=== PATIENT | female | born 1995 | race Caucasian/White ===

== ENCOUNTER 2017-03-02 19:15 | Emergency (ER) | payer OTHER ==
[~2017-03-02] VITALS: Ht 165.1 cm; Wt 93.8 kg
[2017-03-02 19:18] VITALS: TEMP 37; Ht 165.1 cm; Wt 93.8 kg
--- NOTE | 2017-03-02 19:48 | EMERGENCY ROOM VISIT NOTE ---
History Report prepared by Everardo: Augustus Gutierrez Under the Supervision of: Shira FungO. First contact with patient: 19:22 Chief Complaint: VAGINAL DISCHARGE Stated Complaint: 8-9WKS PREG,DISCHARGE History of Present Illness The patient is a 21 year old female who is 8 to 9 weeks who presents to the Emergency Room with complaints of persistent dark brown vaginal discharge that started 3 days ago. She says that she had an internal pelvic 2 days ago, and was told that there may be some discharge afterward, but the discharge did not stop. She notes that she has not noticed clots however. She says that her discharge is similar to the end of her periods, but a bit more heavy. The patient states that this will be her first . She adds that she has been having some intermittent abdominal and pelvic cramping pain. The patient states that her last intercourse was 2 days ago. She denies any back pain or urinary symptoms. She adds that she has vomited a couple times. Pt states she was seen at [facility] earlier today and had labs and US performed. No recent trauma, no heavy lifting. Source of History: patient Onset: 3 days ago Position: other (vaginal) Quality: other (dark brown discharge) Timing: other (persistent) Associated Symptoms: + vomiting, + abdominal pain, No back pain, No urinary symptoms Note: Associated symptoms: Intermittent pelvic cramping pain. Review of Systems See HPI for pertinent positives & negatives. A total of 10 systems reviewed and were otherwise negative. Past Medical & Surgical Medical Problems: (1) No chronic diseases present Family History No pertinent family history Social History Smoking Status: Never Smoker Drug Use: none Marital Status: in relationship Housing Status: lives with family Occupation Status: unemployed Current/Historical Medications Scheduled Docusate Sodium (Colace), 1-3 CAP PO PRN UD Lacosamide (Vimpat), 200 MG PO BID Lamotrigine (Lamictal), 250 MG PO BID Levetiracetam (Keppra), 1,750 MG PO BID Multivit/Min/Iron/Fol Ac/Pren ( Vitamin), 1 TAB PO DAILY Allergies Coded Allergies: No Known Allergies (Unverified , 03/02/17) Physical Exam Vital Signs Date Time Temp Pulse Resp B/P (MAP) Pulse Ox O2 Delivery O2 Flow Rate FiO2 03/02/17 20:40 99 16 121/78 97 03/02/17 19:18 37.0 105 18 117/73 98 Room Air Physical Exam GENERAL: alert, well appearing, well nourished, no distress, non-toxic EYE EXAM: normal conjunctiva, PERRL and EOM's grossly intact OROPHARYNX: no exudate, no erythema, lips, buccal mucosa, and tongue normal and mucous membranes are moist NECK: supple, no nuchal rigidity, no adenopathy, non-tender LUNGS: Clear to auscultation. Normal chest wall mechanics HEART: no murmurs, S1 normal and S2 normal ABDOMEN: abdomen soft, non-tender, normo-active bowel sounds, no masses, no rebound or guarding. BACK: Back is symmetrical on inspection and there is no deformity, no midline tenderness, no CVA tenderness. SKIN: no rashes and no bruising UPPER EXTREMITIES: upper extremities are grossly normal. LOWER EXTREMITIES: No pitting edema. NEURO EXAM: Normal sensorium, cranial nerves II-XII grossly intact, normal speech, no gross weakness of arms, no gross weakness of legs. Medical Decision & Procedures ED Course 1937: The patient was evaluated in room A4B. A complete history and physical exam was performed. 2013: Review of records from [facility] - her beta HCG on February 23 was 1477, her beta HCG on March 02 (i.e. earlier today) was 1234 - did receive dose of Rhogam in [facility] ED, the US done there says there is an intrauterine gestational sac, no pull or yolk sac is seen, there is a complex corpus luteum cyst within right ovary which measures approximately 2.4 cm, no free fluid in pelvis, impression suggests gestational age of less than 5 weeks. 2032: Upon reevaluation, the patient is feeling better. I did a cervix exam, which revealed no CMT tenderness, cervix closed, no blood in vaginal vault. I discussed the findings from [facility] and the treatment plan with the patient. I do not feel she needs repeat blood work or ultrasound imaging at this time given that this was all performed 4-6 hours ago. She verbalizes agreement and understanding. She was discharged home. Medical Decision Differential diagnosis includes etiologies such as ectopic , dysfunction uterine bleeding, bleeding dyscrasia, trauma, infection, as well as others were entertained. Patient presented here following evaluation a [facility] where she had labs and ultrasound imaging performed. Patient with an early and abnormal bleeding. Concern for possible threatened . Patient seemed to not understand imaging and was unhappy with her care [facility]. Following records being obtained from her valuation [facility], I carefully went over these at bedside including her labs as well as her ultrasound and explained the need for close follow-up, and the possible causes of her symptoms. Patient with no current abdominal pain, no vomiting, no fevers, no active bleeding noted on my exam. This is the patient's first . I advised limiting activity, pelvic rest, no strenuous activity. Patient has a follow-up appointment scheduled for Sunday with her BUSINESS SUPPORT COORDINATOR. I discussion will need a repeat hCG level and repeat ultrasound to better confirm if the is viable or if this is a miscarriage. Patient verbalized understanding all this, was agreeable with plan, and seemed happy at time of discharge following a better understanding of her prior evaluation. Medication Reconcilliation Current Medication List: was personally reviewed by me Blood Pressure Screening Patient's blood pressure: Normal blood pressure Impression Primary Impression: Additional Impression: Threatened miscarriage Scribe Attestation The scribe's documentation has been prepared under my direction and personally reviewed by me in its entirety. I confirm that the note above accurately reflects all work, treatment, procedures, and medical decision making performed by me. Departure Information Dispostion Home / Self-Care Patient Instructions My [facility] Additional Instructions Please keep your appointment on Sunday with the BUSINESS SUPPORT COORDINATOR. Please continue to monitor symptoms for any changes. If you develop any worsening bleeding, worsening pain, develop fevers, dizziness, other vaginal discharge, or you have any other new concerns, please return to the emergency room. Problem Qualifiers Primary Impression: Weeks of gestation: less than 8 weeks Qualified Codes: Z3A.01 - Less than 8 weeks gestation of
[2017-03-02] MEDS ORDERED: LAMO100T16 PO (20:27)
[2017-03-02] MEDS ORDERED: KPP/1000 PO (20:27)
[2017-03-02] MEDS ORDERED: LACO200T PO (20:27)
[2017-03-02] MEDS ORDERED: PRENTAB26 PO (20:27)
[2017-03-02] MEDS ORDERED: DOCU-94 PO (20:27)
[2017-03-02 20:40] VITALS: BP 121/78; PULSE 99; O2SAT 97
== END 2017-03-02 20:40 | disposition home or self-care (01) ==
LOC: C.EDB 19:17 → C.EDA 20:40
DX: O20.0 Threatened abortion (principal); Z3A.09 9 weeks gestation of pregnancy; Z79.899 Other long term (current) drug therapy